=== PATIENT | male | born 1940 | race Caucasian/White ===

== ENCOUNTER → 2016-11-06 | Outpatient (CLI) | payer OTHER | LOC: BMCIMAGING 13:04 | PROVIDERS: ATTEND Surgery | DX: I65.23 Occlusion and stenosis of bilateral carotid arteries (principal) ==

== ENCOUNTER 2017-01-23 02:15 | Emergency (ER) | payer OTHER ==
[2017-01-23 02:21] VITALS: RESP 16; TEMP 97.7
[2017-01-23] MEDS ORDERED: DIAZEPAM 5 MG TAB PO ONE (02:35)
--- NOTE | 2017-01-23 02:37 | EDPHY ---
H & P Stated Complaint: "I have a frozen head" - increasing neck pain x 3 days, can't move head Time Seen by Provider: 01/23/17 02:21 HPI/ROS: HPI The patient presents with progressive neck pain for the last 3 days which is achy in nature, on the right greater than the left. It prevented him from sleeping tonight, thus he presents to the emergency room. He has a history of intermittent pain which is similar but less severe. He has been taking acetaminophen without any improvement in his symptoms. He does not have any numbness or tingling of his arms or legs. He does not have a headache, vomiting , vision changes, fever.. REVIEW OF SYSTEMS Constitutional: No fever, no chills. Eyes: No discharge. ENT: No sore throat. Cardiovascular: No chest pain, no palpitations. Respiratory: No cough, no shortness of breath. Gastrointestinal: No abdominal pain, no vomiting. Genitourinary: No hematuria. Musculoskeletal: No back pain. Skin: No rashes. Neurological: No headache. PMHx: Left-sided carotid endarterectomy Soc Hx: lives independently FHx: PHYSICAL General Appearance: Alert, no distress Eyes: Pupils equal and round no pallor or injection ENT, Mouth: Mucous membranes moist Respiratory: There are no retractions, lungs are clear to auscultation Cardiovascular: Regular rate and rhythm Gastrointestinal: Abdomen is soft and non-tender, no masses, bowel sounds normal Neurological: A&O, 5/5 strength in upper extremities with sensation intact to light touch Skin: Warm and dry, no rashes Musculoskeletal: Holding head in neutral position, limited range of motion in all directions because of pain. No midline tenderness. Extremities: symmetrical, full range of motion Psychiatric: Patient is oriented X 3, there is no agitation Source: Patient Exam Limitations: No limitations - Medical/Surgical History Hx Asthma: No Hx Chronic Respiratory Disease: No Hx Diabetes: No Hx Cardiac Disease: Yes Hx Renal Disease: No Hx Cirrhosis: No Hx Alcoholism: No Hx HIV/AIDS: No Hx Splenectomy or Spleen Trauma: No Other PMH: PMHx: corotid stenosis, gout, HLD. PSHx: left corotidedartectomy, AICD - Social History Smoking Status: Never smoked Constitutional: Initial Vital Signs Temperature (C) 36.5 C 01/23/17 02:15 Heart Rate 50 L 01/23/17 02:15 Respiratory Rate 16 01/23/17 02:15 Blood Pressure 163/93 H 01/23/17 02:15 O2 Sat (%) 94 01/23/17 02:15 O2 Delivery Mode Room Air Allergies/Adverse Reactions: No Known Allergies Allergy (Verified 01/29/16 10:30) Home Medications: Medication Instructions Recorded Allopurinol [Allopurinol 300 MG 300 mg PO DAILY 07/12/14 (RX)] Aspirin EC [Aspirin EC 81 mg (*)] 81 mg PO DAILY18 07/12/14 Lisinopril [Zestril 2.5 mg (*)] 2.5 mg PO DAILY 07/12/14 Atorvastatin Calcium [Lipitor 40 80 mg PO DAILY 11/12/15 mg (*)] Nebivolol HCl [Bystolic 5 mg (*)] 2.5 mg PO DAILY 11/12/15 Acetaminophen [Tylenol 325mg (*)] 650 mg PO Q4 PRN #0 tab 11/27/15 Ferrous Sulfate [Ferrous Sulf 325 325 mg PO DAILY #30 tab 11/27/15 MG (*)] Pantoprazole Sodium [Protonix 40mg 40 mg PO BID #60 tab 11/27/15 (*)] Acetaminophen [Tylenol 325mg (*)] 325 - 650 mg PO Q4 PRN #0 tab 02/09/16 Hydrocodone/APAP 5/325 [[place] 1 - 2 tab PO Q4 PRN #15 tab 02/09/16 5/325 (*)] Diazepam [Valium 2 MG (*)] 2 mg PO Q6-8PRN PRN #10 tab 01/23/17 Medical Decision Making - Diagnostics Imaging Results: Cervical spinal x-rays three views show no fracture, no dislocation, DJD is present, interpreted by me, radiology interpretation is pending. Procedures: Procedure trigger-point injection: At level of C6-C7, 2 cm lateral to the midline within the paravertebral musculature, using a 27 gauge needle, 2 mL of 0.5% bupivacaine was injected. Patient tolerated the procedure well with no immediate complications. Differential Diagnosis: This is a 76-year-old man with a history of carotid endarterectomy who presents from home with neck pain and stiffness over the last several days. He does not have a fever, photophobia, rash. I feel meningitis is unlikely in his case. Other possibilities include muscle spasm from disc herniation or DJD. She does not have any neurologic deficits concerning for cervical radiculopathy. In the emergency department, I have given him Valium with some improvement in his symptoms. Given his age, x-ray was performed and showed no fracture. Given his continued pain after Valium, I gave him a paracervical nerve block with some improvement in his symptoms. He will be discharged home with instructions for rest, Valium as needed, warm compresses. - Data Points Medications Given: Discontinued Medications Diazepam (Valium) 5 mg PO EDNOW ONE Stop: 01/23/17 02:36 Last Admin: 01/23/17 02:39 Dose: 5 mg Departure - Departure Disposition: Home, Routine, Self-Care Clinical Impression: Cervical pain (neck), Muscle spasms of neck Condition: Good Instructions: Cervical Sprain (ED) Additional Instructions: Please use acetaminophen 650 mg every 6 hours for pain. You can also use a heat pack or ice. If the pain continues after this you can take the medicine we have prescribed. Please follow-up with your primary care doctor in 1-2 days. Referrals: Addy Plummer MD [Primary Care Provider] - As per Instructions Prescriptions: Diazepam [Valium 2 MG (*)] 2 mg PO Q6-8PRN PRN #10 tab PRN Reason: Pain, Breakthrough
[2017-01-23 04:03] VITALS: BP 120/67; PULSE 74; O2SAT 95
== END 2017-01-23 04:03 | disposition home or self-care (01) ==
PROC: 3E023GC Introduction of Other Therapeutic Substance into Muscle, Percutaneous Approach (ICD-10-PCS; principal; 2017-01-23)
DX: M62.838 Other muscle spasm (principal); Z79.82 Long term (current) use of aspirin